=== PATIENT | female | born 1995 | race Caucasian/White ===

== ENCOUNTER 2017-03-22 16:37 | Inpatient (IN) | payer BC ==
[2017-03-22] MEDS ORDERED: SODIUM CHLORIDE 0.9% 500 ML IV STA (16:50)
--- NOTE | 2017-03-22 17:08 | ED ---
General Adult HPI - General Stated complaint: Overdose Time Seen by Provider: 03/22/17 16:41 Source: patient, EMS, RN notes reviewed, old records reviewed - History of Present Illness Initial comments: Chief complaint history of present illness a 21-year-old female who overdosed on heroin. She was found by EMS really only 4 times per minute they gave her intranasal Narcan and then eventually IV Narcan after they have establish an IV. She is now more alert and answering questions appropriately. - Related Data Previous Rx's Medication Instructions Recorded Escitalopram [Lexapro] 10 mg PO DAILY 14 Days 05/16/15 Famotidine [Pepcid] 20 mg PO DAILY 14 Days 05/16/15 clonazePAM [KlonoPIN] 0.25 mg PO TID@0800,1200,1600 #21 05/16/15 tab clonazePAM [KlonoPIN] 2 mg PO DAILY@2100 #14 tab 05/16/15 Allergies Allergy/AdvReac Type Severity Reaction Status Date / Time adhesive tape Allergy Rash/Hives Verified 03/22/17 18:37 latex Allergy Itching Verified 03/22/17 18:37 duloxetine HCl AdvReac Rapid Verified 05/13/15 17:12 [From Cymbalta] Heart Rate Review of Systems ROS Statement: Those systems with pertinent positive or pertinent negative responses have been documented in the HPI. Review of systems. Patient denies headache chest pain shortness of breath, patient complains of being nauseated. All systems reviewed Patient went through rehab program last summer in [facility] for 11 days. Mother reports she was doing well up until one month ago. Mother reports that the patient has had a history of anxiety depression medication she was taking for that problem did make her feel well. She had open-heart surgery to correct an atrial septal defect was placed on Vicodin for pain control. She became addicted per mother and an after dating a boyfriend that was doing heroin. Other medical problems include goiter. Family history includes addictions to gambling alcohol and smoking. The patient does not smoke doesn't drink alcohol and she has been addicted to heroin for 2 years. ROS Other: All systems not noted in ROS Statement are negative. Past Medical History Past Medical History: No Reported History Additional Past Medical History / Comment(s): ASD History of Any Multi-Drug Resistant Organisms: None Reported Past Surgical History: Cardiac Ablation Additional Past Surgical History / Comment(s): asd repari and cardiac ablation, Open heart surgery for ASD repaire. Past Anesthesia/Blood Transfusion Reactions: No Reported Reaction Past Psychological History: ADD/ADHD, Anxiety Smoking Status: Never smoker Past Alcohol Use History: Daily Past Drug Use History: None Reported General Exam - General Exam Comments Initial Comments: General: The patient is awake and alert, after receiving 2 doses of Narcan. Rate elevated at 130. Eye: Pupils are equal, round and reactive to light, extra-ocular movements are intact ; there is normal conjunctiva bilaterally. No signs of icterus. Ears, nose, mouth and throat: There are moist mucous membranes and no oral lesions. Neck: The neck is supple, there is no tenderness . Cardiovascular: Tachycardic heart rate, 130. No murmur, rub or gallop is appreciated. Respiratory: Lungs are clear to auscultation, respirations are non-labored, breath sounds are equal. No wheezes, stridor, rales, or rhonchi. Gastrointestinal: Soft, non-distended, non-tender abdomen without masses or organomegaly noted. There is no rebound or guarding present. No CVA tenderness. Bowel sounds are unremarkable. Patient was nauseated after receiving the Narcan. Back: There is no tenderness to palpation in the midline. There is no obvious deformity. No rashes noted. Musculoskeletal: Normal ROM, no tenderness, There is no pedal edema. There is no calf tenderness or swelling. Sensation intact. Pulses equal bilaterally 2+. Neurological: CN II-XII intact, There are no obvious motor or sensory deficits. Coordination appears grossly intact. Speech is normal. Skin: Skin is warm and dry and no rashes or lesions are noted. Psychiatric: History of depression and anxiety. History of heroin abuse for 2 years Course Vital Signs 03/22/17 17:00 Temperature 97.6 F Pulse Rate 130 H Respiratory 16 Rate Blood Pressure 121/66 O2 Sat by Pulse 93 L Oximetry Medical Decision Making - Medical Decision Making Medical decision-making. Patient's white count is elevated at 32,000 hemoglobin 13.7 hematocrit 44. The patient's potassium is 3.8 with a BUN 13 creatinine 1.07 GFR greater than 60. Glucose is 146. Troponin is elevated at 0.084 MB 0.5 total CK is 134. The patient's urine drug triage was positive for opiates and methamphetamine. Tylenol and aspirin not found. Urine test negative. Chest x-ray was done and reviewed by radiologist and his impression is there is no heart failure nor pneumonic infiltrate. Heart size is normal. There are sternal wires. There are no hilar masses. Bony thorax is intact. Diaphragm is normal. Impression normal chest. No change. As read by Dr. Lopez The patient be admitted for repeat labs concerning troponin and her leukocytosis. This may be reactive to her IV heroin and the changes she was going through just prior to receiving Narcan. EMS stated that her respiratory rate had dropped to 4. Patient be admitted to the hospitalist on-call for Dr. Brasher. - Lab Data Result diagrams: 03/22/17 17:10 03/22/17 17:10 Lab Results 03/22/17 03/22/17 03/22/17 Range/Units 17:10 17:10 17:10 WBC 32.1 H* (3.8-10.6) k/uL RBC 4.75 (3.80-5.40) m/uL Hgb 13.7 (11.4-16.0) gm/dL Hct 44.6 (34.0-46.0) % MCV 93.8 (80.0-100.0) fL MCH 28.9 (25.0-35.0) pg MCHC 30.8 L (31.0-37.0) g/dL RDW 13.8 (11.5-15.5) % Plt Count 318 (150-450) k/uL Neutrophils % 92 % Lymphocytes % 3 % Monocytes % 4 % Eosinophils % 0 % Basophils % 0 % Neutrophils # 29.5 H (1.3-7.7) k/uL Lymphocytes # 0.8 L (1.0-4.8) k/uL Monocytes # 1.4 H (0-1.0) k/uL Eosinophils # 0.1 (0-0.7) k/uL Basophils # 0.1 (0-0.2) k/uL Sodium 143 (137-145) mmol/L Potassium 3.8 (3.5-5.1) mmol/L Chloride 106 (98-107) mmol/L Carbon Dioxide 26 (22-30) mmol/L Anion Gap 11 mmol/L BUN 13 (7-17) mg/dL Creatinine 1.07 H (0.52-1.04) mg/dL Est GFR (MDRD) Af Amer >60 (>60 ml/min/1.73 sqM) Est GFR (MDRD) Non-Af >60 (>60 ml/min/1.73 sqM) Glucose 146 H (74-99) mg/dL Calcium 8.8 (8.4-10.2) mg/dL Total Bilirubin 0.5 (0.2-1.3) mg/dL AST 27 (14-36) U/L ALT 29 (9-52) U/L Alkaline Phosphatase 68 (38-126) U/L Total Creatine Kinase 134 (30-135) U/L CK-MB (CK-2) 0.7 (0.0-2.4) ng/mL CK-MB (CK-2) Rel Index 0.5 Troponin I 0.084 H* (0.000-0.034) ng/mL Total Protein 7.5 (6.3-8.2) g/dL Albumin 4.4 (3.5-5.0) g/dL Urine HCG, Qual (Not Detectd) Salicylates <1.0 mg/dL Urine Opiates Screen (NotDetected) Ur Oxycodone Screen (NotDetected) Urine Methadone Screen (NotDetected) Ur Propoxyphene Screen (NotDetected) Acetaminophen <10.0 ug/mL Ur Barbiturates Screen (NotDetected) U Tricyclic Antidepress (NotDetected) Ur Phencyclidine Scrn (NotDetected) Ur Amphetamines Screen (NotDetected) U Methamphetamines Scrn (NotDetected) U Benzodiazepines Scrn (NotDetected) Urine Cocaine Screen (NotDetected) U Marijuana (THC) Screen (NotDetected) 03/22/17 03/22/17 Range/Units 17:20 17:20 WBC (3.8-10.6) k/uL RBC (3.80-5.40) m/uL Hgb (11.4-16.0) gm/dL Hct (34.0-46.0) % MCV (80.0-100.0) fL MCH (25.0-35.0) pg MCHC (31.0-37.0) g/dL RDW (11.5-15.5) % Plt Count (150-450) k/uL Neutrophils % % Lymphocytes % % Monocytes % % Eosinophils % % Basophils % % Neutrophils # (1.3-7.7) k/uL Lymphocytes # (1.0-4.8) k/uL Monocytes # (0-1.0) k/uL Eosinophils # (0-0.7) k/uL Basophils # (0-0.2) k/uL Sodium (137-145) mmol/L Potassium (3.5-5.1) mmol/L Chloride (98-107) mmol/L Carbon Dioxide (22-30) mmol/L Anion Gap mmol/L BUN (7-17) mg/dL Creatinine (0.52-1.04) mg/dL Est GFR (MDRD) Af Amer (>60 ml/min/1.73 sqM) Est GFR (MDRD) Non-Af (>60 ml/min/1.73 sqM) Glucose (74-99) mg/dL Calcium (8.4-10.2) mg/dL Total Bilirubin (0.2-1.3) mg/dL AST (14-36) U/L ALT (9-52) U/L Alkaline Phosphatase (38-126) U/L Total Creatine Kinase (30-135) U/L CK-MB (CK-2) (0.0-2.4) ng/mL CK-MB (CK-2) Rel Index Troponin I (0.000-0.034) ng/mL Total Protein (6.3-8.2) g/dL Albumin (3.5-5.0) g/dL Urine HCG, Qual Not Detected (Not Detectd) Salicylates mg/dL Urine Opiates Screen Detected H (NotDetected) Ur Oxycodone Screen Not Detected (NotDetected) Urine Methadone Screen Not Detected (NotDetected) Ur Propoxyphene Screen Not Detected (NotDetected) Acetaminophen ug/mL Ur Barbiturates Screen Not Detected (NotDetected) U Tricyclic Antidepress Not Detected (NotDetected) Ur Phencyclidine Scrn Not Detected (NotDetected) Ur Amphetamines Screen Detected H (NotDetected) U Methamphetamines Scrn Not Detected (NotDetected) U Benzodiazepines Scrn Not Detected (NotDetected) Urine Cocaine Screen Not Detected (NotDetected) U Marijuana (THC) Screen Not Detected (NotDetected) Disposition Clinical Impression: Elevated troponin, Heroin overdose Disposition: ADMITTED IP TO THIS [facility] Condition: Serious Referrals: Tritsin Brasher MD [Primary Care Provider] - 1-2 days Time of Disposition: 18:49
[2017-03-22 17:23] LABS: Basophils # (A) 0.1 k/uL (0-0.2); Basophils % (A) 0 %; CH 29.5; CHCM 31.6; Eosinophils # (A) 0.1 k/uL (0-0.7); Eosinophils % (A) 0 %; HCT 44.6 % (34.0-46.0); HDW 2.42; HGB 13.7 gm/dL (11.4-16.0); Luc # (Auto) 0.17; Luc % (Auto) 1; Lymphocytes # (A) 0.8 k/uL (1.0-4.8); Lymphocytes % (A) 3 %; MCH 28.9 pg (25.0-35.0); MCHC 30.8 g/dL (31.0-37.0); MCV 93.8 fL (80.0-100.0); Mean Platelet Volume 6.9; Monocytes # (A) 1.4 k/uL (0-1.0); Monocytes % (A) 4 %; Neutrophils # (A) 29.5 k/uL (1.3-7.7); Neutrophils % (A) 92 %; RBC 4.75 m/uL (3.80-5.40); RDW 13.8 % (11.5-15.5); WBC (Perox) 30.61
[2017-03-22 17:33] LABS: ALT 29 U/L (9-52); AST 27 U/L (14-36); Acetaminophen <10.0 ug/mL; Alkaline Phosphatase 68 U/L (38-126); Anion Gap 11 mmol/L; Blood Urea Nitrogen 13 mg/dL (7-17); Calcium 8.8 mg/dL (8.4-10.2); Carbon Dioxide 26 mmol/L (22-30); Chloride 106 mmol/L (98-107); Glucose 146 mg/dL (74-99); Non-African American GFR(MDRD) >60 (>60 ml/min/1.73 sqM); Potassium 3.8 mmol/L (3.5-5.1); Salicylate <1.0 mg/dL; Sodium 143 mmol/L (137-145); Total Bilirubin 0.5 mg/dL (0.2-1.3); Total Protein 7.5 g/dL (6.3-8.2)
[2017-03-22 18:03] LABS: Creatine Kinase MB 0.7 ng/mL (0.0-2.4)
[2017-03-22 18:07] LABS: Troponin I 0.084 ng/mL (0.000-0.034)
[2017-03-22] MEDS ORDERED: METOCLOPRAMIDE 5 MG/ML 2 ML VIAL IVP STA (18:24)
--- NOTE | 2017-03-22 18:35 | XR ---
EXAMINATION TYPE: XR chest 2V DATE OF EXAM: 03/22/2017 6:31 PM COMPARISON: 05/05/2015 HISTORY: Possible overdose. Heart surgery. TECHNIQUE: Frontal and lateral views of the chest are obtained. FINDINGS: There is no heart failure nor pneumonic infiltrate. Heart size is normal. There are sterna l wires. There are no hilar masses. Bony thorax is intact. Diaphragm is normal. IMPRESSION: Normal chest. No change.
[2017-03-22] MEDS ORDERED: NALOXONE 0.4 MG/ML 1 ML VIAL IV PRN (18:49)
[2017-03-22] MEDS ORDERED: LORazepam 2 MG/ML SYRINGE IV PRN (18:49)
[2017-03-22] MEDS ORDERED: ONDANSETRON 4 MG/2 ML VIAL IVP PRN (18:49)
[2017-03-22] MEDS: SODIUM CHLORIDE 0.9% 1,000 ML IV SCH (19:53)
[2017-03-22 23:01] VITALS: BMI 28.8
[2017-03-22 23:53] LABS: Creatine Kinase MB 1.4 ng/mL (0.0-2.4)
[2017-03-22 23:55] LABS: Troponin I 0.113 ng/mL (0.000-0.034)
[2017-03-23 00:29] VITALS: RESP 16
[2017-03-23] MEDS: SODIUM CHLORIDE 0.9% 1,000 ML IV SCH (06:09)
[2017-03-23 06:26] LABS: Creatine Kinase MB 1.7 ng/mL (0.0-2.4)
[2017-03-23 06:37] LABS: Troponin I 0.051 ng/mL (0.000-0.034)
[2017-03-23 08:26] VITALS: TEMP 98.4
[2017-03-23 08:59] LABS: Basophils % (A) 0 %; CH 29.2; CHCM 32.3; Eosinophils # (A) 0.2 k/uL (0-0.7); Eosinophils % (A) 1 %; HCT 39.7 % (34.0-46.0); HDW 2.57; HGB 12.9 gm/dL (11.4-16.0); Luc # (Auto) 0.17; Luc % (Auto) 2; Lymphocytes # (A) 2.3 k/uL (1.0-4.8); Lymphocytes % (A) 21 %; MCH 29.5 pg (25.0-35.0); MCHC 32.5 g/dL (31.0-37.0); MCV 90.8 fL (80.0-100.0); Mean Platelet Volume 6.9; Monocytes # (A) 0.4 k/uL (0-1.0); Monocytes % (A) 4 %; Neutrophils # (A) 7.9 k/uL (1.3-7.7); Neutrophils % (A) 72 %; RBC 4.38 m/uL (3.80-5.40); RDW 13.4 % (11.5-15.5); WBC (Perox) 11.26
[2017-03-23] MEDS ORDERED: ESCITALOPRAM 20 MG TAB PO SCH (09:00)
[2017-03-23] MEDS ORDERED: ENOXAPARIN 40 MG/0.4 ML SYRINGE SQ SCH (09:00)
[2017-03-23] MEDS ORDERED: PANTOPRAZOLE 40 MG/10 ML VIAL IV SCH (09:00)
[2017-03-23 09:07] LABS: Anion Gap 7 mmol/L; Blood Urea Nitrogen 10 mg/dL (7-17); Calcium 8.8 mg/dL (8.4-10.2); Carbon Dioxide 26 mmol/L (22-30); Chloride 106 mmol/L (98-107); Glucose 82 mg/dL (74-99); Non-African American GFR(MDRD) >60 (>60 ml/min/1.73 sqM); Potassium 3.8 mmol/L (3.5-5.1); Sodium 139 mmol/L (137-145)
[2017-03-23 12:16] VITALS: BP 109/51; PULSE 74
--- NOTE | 2017-03-23 12:28 | CONS ---
DATE OF CONSULTATION: 03/23/2017 Dina is a 21-year-old lady with history of ASD status post surgical closure at a young age, paroxysmal supraventricular tachycardia status post ablation, who presents to the hospital having had a heroin overdose. Cardiology has been consulted because of mild elevation in troponin. Troponins were mildly elevated at 0.08, 0.1 and 0.05, and these are probably related to drug overdose. Her white cell count was elevated on admission, it has come down to 11. This morning, the patient is feeling well, in stable rhythm, free of symptoms, stable hemodynamically. PAST MEDICAL HISTORY: Significant for ASD status post closure, paroxysmal supraventricular tachycardia status post ablation. Medications at home include Lexapro 20 daily Allergy to LATEX, KRISHNA, CYMBALTA, BACTRIM. FAMILY HISTORY: Negative for premature coronary artery disease. SOCIAL HISTORY: Significant for drug abuse. REVIEW OF SYSTEMS: HEENT: Unremarkable. CARDIAC: As described above. RESPIRATORY: Negative. GI: Negative. GENITOURINARY: Negative. GENITOURINARY: Negative. MUSCULOSKELETAL: Negative. DERMATOLOGY: Negative. CONSTITUTIONAL: Significant for drug overdose. The rest of the system review is not relevant. On exam, comfortable at rest. Vital signs are stable. There is no jugular venous distention. Carotid upstroke is normal. There is no bruit. Chest exam reveals good air entry bilaterally. Heart exam reveals first and second heart sounds. No gallop. No murmur, no rub. Abdomen soft, nontender. Exam of the extremities did not reveal edema. Peripheral pulses are felt. ASSESSMENT: 1. Troponin elevation probably secondary to drug overdose. 2. Atrial septal defect, status post closure. 3. Paroxysmal supraventricular tachycardia status post ablation. PLAN: Patient is stable clinically. I advised the patient to quit using drugs. She can be discharged home. We will consider doing an outpatient echocardiogram on her.
--- NOTE | 2017-03-23 21:56 | HP ---
DATE OF ADMISSION: 03/22/2017 PRESENTING COMPLAINT: Decreased responsiveness. History of presenting complaint: This is a 21-year-old patient of Dr. Brasher. Patient has a history of ASD repair and ablation of arrhythmia. The patient also gets panic anxiety attacks, ( ) syndrome. Patient had gone down to [place], took some heroin, was found unresponsive by the mother in the room. She had to break the door down. EMS came. Initially given a dose of Narcan through the nostril and then given with IV. Patient came around. The patient had a bit of troponin leak and she was admitted. Now patient is woken up and states she feels stupid about what she did. She has been doing IV heroin on and off for quite some time; has been in rehab and then relapsed. Denies any chest pain palpitations. Just feels a bit tired. REVIEW OF SYSTEMS: CONSTITUTIONAL: None. HEENT: None. RESPIRATORY: None. CARDIOVASCULAR: None. GASTROINTESTINAL: None. GENITOURINARY: None. Dermatologic: None. HEMATOLOGIC: None. LYMPHATIC: None. PSYCHIATRY: Some anxiety. NEUROLOGICAL: None. Past medical history of ASD repair. Ablation, panic episodes, IV heparin use. PAST SURGICAL HISTORY: As above. SOCIAL HISTORY: Does IV heroin off and on. 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 Lives with her parents. Drinks alcohol about 3 to 4 times a week. FAMILY HISTORY: Reviewed, noncontributory to the presentation. HOME MEDICATIONS: Suboxone sometimes. ALLERGIES: ADHESIVE TAPE, LASIX, KRISHNA, CYMBALTA AND BACTRIM. On examination, temperature 98.4, pulse 75, respiratory rate 16, blood pressure 104/52, pulse ox 97% on room air. GENERAL APPEARANCE: Average build, lying in bed. Comfortable. EYES: Pupils equal. Conjunctivae normal. HEENT: External appearance of nose and ears normal. Oral cavity normal. NECK: JVD not raised. Mass not palpable. RESPIRATORY: Effort lungs are clear. CARDIOVASCULAR: First and second sounds normal. No edema. ABDOMEN: Soft, nontender. Liver and spleen not palpable. LYMPHATICS: No lymph nodes palpable in the neck and axilla. PSYCHIATRY: Alert and oriented x3. Mood and affect normal. NEUROLOGICAL: Neurologic cranial nerves grossly intact. Power and sensation grossly intact. INVESTIGATIONS: Admission labs: White count 32.1, hemoglobin 10.7, platelets ( ), potassium 3.8. BUN 13, creatinine 1.07. Repeat white count was 11. Creatinine is 0.77. ASSESSMENT: 1. Acute IV heroin overdose leading to acute metabolic encephalopathy with some reversible Narcan. 2. Chronic IV heroin use. 3. Leukocytosis, likely stress-related ( ). 4. Troponin leak probably from hemodynamic instability. PLAN: The patient will be given IV fluids. Cardiology was consulted. The patient counseled against use of IV heroin. Will feed the patient and get her to ambulate. Copy to Dr. Brasher.
--- NOTE | 2017-03-24 11:36 | DS ---
DATE OF ADMISSION: 03/22/2017 DATE OF DISCHARGE: 03/23/2017 FINAL DIAGNOSES: 1. Acute metabolic encephalopathy from IV heroin overdose. 2. IV heroin dependence. 3. Leukocytosis, likely reactive. 4. Troponin leak from hemodynamic mismatch. HOSPITAL COURSE: This is a patient who has got history of AST repair and ablation in the past who is doing IV heroin, found in the room by her mother, given Narcan to which she responded, presented with troponin leak. A 2-D echo is unremarkable. Patient counseling against use of alcohol and heroin. Patient feels rather stupid about the whole thing. On exam, lungs are clear. CARDIOVASCULAR: First and second sounds normal. Consultation with Dr. Daniel Bruner. Patient is to follow up with Dr. Brasher. It may be noted that patient now has been taking Lexapro for quite some time. ( ) not resumed and patient has been getting some Suboxone. Patient's mother was visiting. on exam, lungs are clear. CARDIOVASCULAR: First and second seconds are normal.
[2017-03-25 09:01] LABS: WBC 32.1 k/uL (3.8-10.6)
== END 2017-03-23 15:06 | disposition home or self-care (01) | DRG 917 ==
LOC: EC 16:37 → 6SEL 18:55
PROVIDERS: ADMIT Hospitalist; ATTEND Hospitalist
DX: T40.1X1A Poisoning by heroin, accidental (unintentional), initial encounter (principal); G93.41 Metabolic encephalopathy; F11.20 Opioid dependence, uncomplicated; I47.1 Supraventricular tachycardia; F41.0 Panic disorder [episodic paroxysmal anxiety]; F90.9 Attention-deficit hyperactivity disorder, unspecified type; D72.829 Elevated white blood cell count, unspecified; F43.9 Reaction to severe stress, unspecified; F41.9 Anxiety disorder, unspecified; Z91.040 Latex allergy status; Z87.74 Personal history of (corrected) congenital malformations of heart and circulatory system; Z88.1 Allergy status to other antibiotic agents; Z88.8 Allergy status to other drugs, medicaments and biological substances; Z91.048 Other nonmedicinal substance allergy status; Z91.09 Other allergy status, other than to drugs and biological substances; Z79.899 Other long term (current) drug therapy; Y92.009 Unspecified place in unspecified non-institutional (private) residence as the place of occurrence of the external cause
CPT/HCPCS: 36415; 71020; 80048; 80053; 80306; 81025; 82075; 82550; 82553; 83520; 84484; 85025; 93005; 96361; 96374; 99284; 99285

== ENCOUNTER 2017-03-24 01:32 | Emergency (ER) | payer BC ==
[2017-03-24 01:47] VITALS: RESP 18
[2017-03-24 02:01] LABS: Basophils # (A) 0.1 k/uL (0-0.2); Basophils % (A) 0 %; CHCM 31.9; Eosinophils # (A) 0.1 k/uL (0-0.7); Eosinophils % (A) 1 %; HCT 37.8 % (34.0-46.0); HDW 2.55; Luc % (Auto) 1; Lymphocytes # (A) 1.3 k/uL (1.0-4.8); Lymphocytes % (A) 11 %; MCH 29.1 pg (25.0-35.0); MCHC 31.8 g/dL (31.0-37.0); MCV 91.2 fL (80.0-100.0); Mean Platelet Volume 7.5; Monocytes # (A) 0.5 k/uL (0-1.0); Monocytes % (A) 4 %; Neutrophils # (A) 10.1 k/uL (1.3-7.7); Neutrophils % (A) 83 %; RBC 4.14 m/uL (3.80-5.40); RDW 13.6 % (11.5-15.5); WBC 12.2 k/uL (3.8-10.6); WBC (Perox) 13.03
[2017-03-24 02:31] LABS: Anion Gap 10 mmol/L; Calcium 8.9 mg/dL (8.4-10.2); Carbon Dioxide 24 mmol/L (22-30); Chloride 105 mmol/L (98-107); Glucose 176 mg/dL (74-99); Non-African American GFR(MDRD) >60 (>60 ml/min/1.73 sqM); Sodium 139 mmol/L (137-145)
[2017-03-24 02:44] LABS: Blood Urea Nitrogen 10 mg/dL (7-17); Potassium 4.2 mmol/L (3.5-5.1)
--- NOTE | 2017-03-24 03:20 | ED ---
Overdose HPI - General Chief Complaint: Overdose Stated Complaint: Overdose Time Seen by Provider: 03/24/17 01:35 Source: patient, family, EMS Mode of arrival: EMS - History of Present Illness Initial Comments: Patient is 22-year-old woman who presents after overdose with narcotic. The patient had been in the hospital for an overdose, was discharged and states she was going to be used the last of her supply before going to a rehab. Patient's family member called EMS and they brought her here after giving Narcan. Patient not having complaints at the moment. Complaint: accidental overdose -: minutes(s) Context: Accidental Overdose: wanted to get high - Related Data Home Medications Medication Instructions Recorded Confirmed Buprenorphine HCl/Naloxone HCl 1 film SUBLINGUAL AC-BID 03/22/17 03/22/17 [Suboxone 8 mg-2 mg Sl Film] Previous Rx's Medication Instructions Recorded Ondansetron Odt [Zofran ODT] 4 mg PO Q8HR PRN #10 tab 03/24/17 Allergies Allergy/AdvReac Type Severity Reaction Status Date / Time adhesive tape Allergy Rash/Hives Verified 03/22/17 19:00 latex Allergy Itching Verified 03/22/17 19:00 nickel Allergy Rash/Hives Verified 03/22/17 19:00 duloxetine HCl AdvReac Rapid Verified 03/22/17 19:00 [From Cymbalta] Heart Rate sulfamethoxazole AdvReac Nausea & Verified 03/22/17 19:00 [From Bactrim] Vomiting trimethoprim [From Bactrim] AdvReac Nausea & Verified 03/22/17 19:00 Vomiting Review of Systems ROS Statement: Those systems with pertinent positive or pertinent negative responses have been documented in the HPI. ROS Other: All systems not noted in ROS Statement are negative. Constitutional: Denies: fever Respiratory: Denies: cough, dyspnea Cardiovascular: Denies: chest pain, edema Gastrointestinal: Denies: abdominal pain, vomiting, diarrhea Genitourinary: Denies: dysuria, hematuria Musculoskeletal: Denies: back pain Skin: Denies: rash Psychiatric: Denies: homicidal thoughts, suicidal thoughts Past Medical History Past Medical History: No Reported History Additional Past Medical History / Comment(s): ASD History of Any Multi-Drug Resistant Organisms: None Reported Past Surgical History: Cardiac Ablation Additional Past Surgical History / Comment(s): asd repari and cardiac ablation, Open heart surgery for ASD repaire. Past Anesthesia/Blood Transfusion Reactions: No Reported Reaction Past Psychological History: Anxiety, Depression Smoking Status: Never smoker Past Alcohol Use History: Daily Past Drug Use History: Heroin, Prescription Drug Abuse - Past Family History Mother Family Medical History: No Reported History General Exam General appearance: alert, in no apparent distress Head exam: Present: atraumatic, normocephalic Eye exam: Present: normal appearance. Absent: scleral icterus, conjunctival injection ENT exam: Present: normal oropharynx Respiratory exam: Present: normal lung sounds bilaterally. Absent: respiratory distress, wheezes, rales, rhonchi Cardiovascular Exam: Present: regular rate, normal rhythm, normal heart sounds GI/Abdominal exam: Present: soft. Absent: tenderness, guarding, rebound Extremities exam: Present: normal inspection, normal capillary refill Neurological exam: Present: alert Skin exam: Present: warm, dry, intact, normal color. Absent: rash Course Vital Signs 03/24/17 03/24/17 03/24/17 01:41 02:49 03:45 Temperature 98.2 F 98.7 F Pulse Rate 97 93 89 Respiratory 18 18 18 Rate Blood Pressure 124/60 113/67 111/62 O2 Sat by Pulse 99 95 99 Oximetry Medical Decision Making - Lab Data Result diagrams: 03/24/17 01:46 03/24/17 01:46 Lab Results 03/24/17 03/24/17 Range/Units 01:46 01:46 WBC 12.2 H (3.8-10.6) k/uL RBC 4.14 (3.80-5.40) m/uL Hgb 12.0 (11.4-16.0) gm/dL Hct 37.8 (34.0-46.0) % MCV 91.2 (80.0-100.0) fL MCH 29.1 (25.0-35.0) pg MCHC 31.8 (31.0-37.0) g/dL RDW 13.6 (11.5-15.5) % Plt Count 227 (150-450) k/uL Neutrophils % 83 % Lymphocytes % 11 % Monocytes % 4 % Eosinophils % 1 % Basophils % 0 % Neutrophils # 10.1 H (1.3-7.7) k/uL Lymphocytes # 1.3 (1.0-4.8) k/uL Monocytes # 0.5 (0-1.0) k/uL Eosinophils # 0.1 (0-0.7) k/uL Basophils # 0.1 (0-0.2) k/uL Sodium 139 (137-145) mmol/L Potassium 4.2 (3.5-5.1) mmol/L Chloride 105 (98-107) mmol/L Carbon Dioxide 24 (22-30) mmol/L Anion Gap 10 mmol/L BUN 10 (7-17) mg/dL Creatinine 0.90 (0.52-1.04) mg/dL Est GFR (MDRD) Af Amer >60 (>60 ml/min/1.73 sqM) Est GFR (MDRD) Non-Af >60 (>60 ml/min/1.73 sqM) Glucose 176 H (74-99) mg/dL Calcium 8.9 (8.4-10.2) mg/dL Disposition Clinical Impression: Heroin overdose Disposition: HOME SELF-CARE Condition: Good Instructions: Opioid Overdose (ED) Prescriptions: Ondansetron Odt [Zofran ODT] 4 mg PO Q8HR PRN #10 tab PRN Reason: Nausea Referrals: Tristin Brasher MD [Primary Care Provider] - 1-2 days Kelvin Lloyd MD [REFERRING] - 1-2 days
[2017-03-24] MEDS ORDERED: cloNIDine 0.2 MG/24HR PATCH 1 PATCH PATCH TRANSDERM SCH (03:30)
[2017-03-24 03:50] VITALS: BP 111/62; PULSE 89; TEMP 98.7
== END 2017-03-24 03:44 | disposition home or self-care (01) ==
LOC: EC 01:32
DX: T40.1X1A Poisoning by heroin, accidental (unintentional), initial encounter (principal); Z79.891 Long term (current) use of opiate analgesic; Z88.1 Allergy status to other antibiotic agents; Z88.8 Allergy status to other drugs, medicaments and biological substances; Z91.040 Latex allergy status; Z91.09 Other allergy status, other than to drugs and biological substances
CPT/HCPCS: 36415; 80048; 85025; 93005; 99284

== ENCOUNTER → 2017-05-05 | Outpatient (CLI) | payer BC ==
--- NOTE | 2017-05-05 17:18 | US ---
EXAMINATION TYPE: US transvaginal DATE OF EXAM: 05/05/2017 COMPARISON: NONE CLINICAL HISTORY: R10.2 Pelvic and Perineal Pain. TECHNIQUE: Transvaginal (TV) Date of LMP: 04/19/2017 EXAM MEASUREMENTS: Uterus: 7.7 x 3.6 x 4.1 cm Endometrial Stripe: 1.4 cm Right Ovary: 3.9 x 2.8 x 3.8 cm Left Ovary: 3.7 x 1.9 x 3.0 cm 1. Uterus: Anteverted wnl 2. Endometrium: wnl 3. Right Ovary: cyst measures 2.2 x 2.2 x 2.2 cm 4. Left Ovary: wnl 5. Bilateral Adnexa: wnl 6. Posterior cul-de-sac: no free fluid IMPRESSION: There is a simple 2 cm right ovarian cyst. No solid adnexal mass. Normal uterus and endom etrium.
== END | disposition home or self-care (01) ==
LOC: RADUSWWP 16:45
PROVIDERS: ATTEND Family Medicine
DX: N83.201 Unspecified ovarian cyst, right side (principal); R10.2 Pelvic and perineal pain
CPT/HCPCS: 76830

== ENCOUNTER → 2018-05-06 | Outpatient (CLI) | payer BC, OTHER ==
--- NOTE | 2018-05-06 21:00 | CT ---
EXAMINATION TYPE: CT ankle RT wo con DATE OF EXAM: 05/06/2018 COMPARISON: None HISTORY: 23-year-old female with pain, Right ankle injury 04-27-18. TECHNIQUE: Contiguous axial scanning of the right ankle without IV contrast. Coronal and sagittal rec onstructions performed. Reconstructions generated on a dedicated independent workstation. CT DLP: 277 mGycm Automated exposure control for dose reduction was used. FINDINGS: There is an overlying plaster cast. There is a large comminuted fractures of the posterior malleolus. The dominant fracture fragment purnima ures up to 2.5 cm craniocaudal by 9 mm AP by 2.6 cm wide. This is mildly depressed with 2 mm articula r surface incongruity and a tiny 2 mm interposed loose body within the tibiotalar joint. Additional s mall comminuted fragments are present at the junction of the posterior and medial malleolus measuring 6 mm. Some of the smaller fragments abut the anterior margin of the posterior tibial tendon along it s course behind the medial malleolus, axial image 32. There is a nondisplaced transverse fracture of the medial malleolus. There is also an oblique, mildly displaced fracture of the distal fibula. The ATFL is likely ruptured given the extensive soft tissue thickening and heterogeneity. There is some periosteal callus seen along the posterior aspect of the distal tibia extending lateral ly into the region of the syndesmosis. Subtalar joint is aligned. Achilles tendon intact. Incidental small os intermetatarsal. No additional acute fracture or dislocation. Ankle joint effusion. IMPRESSION: 1. UNSTABLE, TRIMALLEOLAR ANKLE FRACTURE. 2. THE POSTERIOR MALLEOLAR COMPONENT IS LARGE AND COMMINUTED AND SLIGHTLY DEPRESSED CAUSING 2 MM OF A RTICULAR SURFACE STEP-OFF. THERE IS A PUNCTATE 2 MM LOOSE BODY INTERPOSED IN THE TIBIOTALAR JOINT HER E. 3. MILD COMMINUTION AT THE JUNCTION OF THE POSTERIOR AND MEDIAL MALLEOLAR FRACTURES WITH TINY FRAGMEN TS OF BONE ABUTTING THE ANTERIOR MARGIN OF THE POSTERIOR TIBIAL TENDON ALONG ITS COURSE. 4. FINDINGS SUGGEST A SUBACUTE INJURY GIVEN PERIOSTEAL BONE FORMATION ALONG THE POSTERIOR MARGIN OF T HE DISTAL TIBIA EXTENDING AROUND TO THE REGION OF THE SYNDESMOSIS SUGGESTING INJURY TO THE LOWER SYND ESMOTIC MEMBRANE WELL. 5. SUSPECT ATFL RUPTURE.
== END | disposition home or self-care (01) ==
LOC: RADCTMAIN 19:30
PROVIDERS: ATTEND Orthopaedic Surgery
DX: S82.851D Displaced trimalleolar fracture of right lower leg, subsequent encounter for closed fracture with routine healing (principal)